=== PATIENT | male | born 1945 | race Caucasian/White ===

== ENCOUNTER → 2016-06-17 | Outpatient (CLI) | payer MEDICARE, BC ==
[~2016-06-17] MED LIST: FLEXERIL 1010 MG/TAB PO; NO HOME MEDICATIONS; PERCOCET 325 MG1 TA2 PO; PRINIVIL20 MG PO
== END ==
LOC: COL.RAD 08:06
DX: Z13.6 Encounter for screening for cardiovascular disorders (principal)